=== PATIENT | female | born 1990 | race Caucasian/White ===

== ENCOUNTER 2022-03-01 13:41 | Outpatient (CLI) | payer SELFPAY ==
--- NOTE | 2022-03-01 14:00 | CRLHL7_ITS ---
For Patients: As a result of the Cures Act, medical imaging exams and procedure reports are released immediately into your electronic medical record. You may view this report before your referring provider. If you have questions, please contact your health care provider. INDICATION: First trimester scan, establish dates. COMPARISON: None. TECHNIQUE: Real-time law-scale imaging of the pelvis was performed. FINDINGS: Sonographic imaging demonstrates a single living intrauterine gestation. The embryo demonstrates a regular cardiac rate measuring 169 beats per minute. The embryo`s crown-rump length measurement of 1.8 cm corresponds to a gestational age of 8 weeks 2 days with a sonographic due date of 10/09/2022. There is a normal-appearing yolk sac. There are no gross abnormalities noted within the embryo at this early state of development. The gestational sac has a normal appearance. There is no evidence of a perigestational hemorrhage. The amount of fluid within the sac appears appropriate for gestational age. The cervix is closed. The myometrium appears normal. The ovaries are of normal size. Probable corpus luteal cyst left ovary. There are no suspicious fluid collections noted in the cul-de-sac. IMPRESSION: Normal first trimester OB ultrasound exam. Gestational age calculated at 8 weeks 2 days with a sonographic due date of 10/09/2022. Dictated by Tae Tony MD @ 03/01/2022 2:37:40 PM (Electronically Signed)
== END 2022-03-01 13:42 | disposition home or self-care (01) ==
LOC: US 13:42
PROVIDERS: PCP Emergency Medicine; Visit Provider Registered Nurse
DX: Z34.91 Encounter for supervision of normal pregnancy, unspecified, first trimester (principal)
CPT/HCPCS: 76817

== ENCOUNTER 2022-03-01 15:35 | Outpatient (CLI) | payer SELFPAY ==
[2022-03-01 19:56] LABS: Hepatitis B Surface Antigen* Negative (Negative)
[2022-03-01 20:02] LABS: HIV 1/2/P24 Combo Screen* Negative (Negative)
[2022-03-01 20:13] LABS: Hepatitis C Virus Antibody* Negative (Negative)
[2022-03-04 09:44] LABS: Rapid Plasma Reagin (RPR) Non Reactive (Non Reactive)
[2022-03-04 14:50] LABS: Rubella Antibody IgG 26.2 IU/mL
== END 2022-03-01 15:36 | disposition home or self-care (01) ==
PROVIDERS: PCP Emergency Medicine; Visit Provider Registered Nurse
DX: Z34.91 Encounter for supervision of normal pregnancy, unspecified, first trimester (principal)
CPT/HCPCS: 86592; 86703; 86762; 86803; 86850; 86900; 86901; 87086; 87340

== ENCOUNTER 2022-05-22 08:30 | Outpatient (CLI) | payer SELFPAY ==
--- NOTE | 2022-05-22 08:45 | CRLHL7_ITS ---
For Patients: As a result of the Century Cures Act, medical imaging exams and procedure reports are released immediately into your electronic medical record. You may view this report before your referring provider. If you have questions, please contact your health care provider. INDICATION: Evaluate anatomy. COMPARISON: 03/01/2022 TECHNIQUE: Real time law scale imaging of the fetus was performed as well as color Doppler analysis of the umbilical vessels. FINDINGS: Sonographic imaging demonstrates a single living intrauterine gestation. Fetus demonstrates a regular cardiac rate of 137 beats per minute. Fetus has a breech position. The placenta lies fundal without evidence of placenta previa. The edge of the placenta is located 9.4 cm from the internal cervical os. Amniotic fluid volume appears normal. Single deepest vertical pocket: 4.5 cm. The cervix is closed and measures 4.6 cm in length. The composite ultrasound gestational age is calculated at 20 weeks 1 day with an estimated sonographic due date of 10/08/2022. The estimated weight is 379 grams which lies at the 81st %. The following biometric measurements were obtained: Biparietal diameter: 4.5 cm/19 weeks 5 days 32nd% Head circumference: 17.4 cm/19 weeks 6 days 31st% Abdominal circumference: 17.1 cm/22 weeks 1 day 94th% Femur length: 3.1 cm/19 weeks 4 days 24th% The HC/AC ratio measures: 1.01 range (1.07-1.25) On anatomic survey, there is a normal appearance of the cerebral ventricles, cavum septi pellucidi, cisterna magna and cerebellum. The nose, lips, and facial profile appear normal. The cervical, thoracic and lumbar spine are well visualized and appear normal. There is a normal four-chamber heart view and the left and right ventricular outflow tracts appear normal. The diaphragm and stomach appear normal. The kidneys and bladder also appear normal. There is a normal three-vessel cord and cord insertion site. The four extremities appear normal. IMPRESSION: Normal OB ultrasound exam with concordance of clinical and sonographic dating. No intrinsic abnormalities noted on anatomic survey. Dictated by Tae Tony MD @ 05/23/2022 12:08:50 PM (Electronically Signed)
== END 2022-05-22 08:31 | disposition home or self-care (01) ==
LOC: US 08:31
PROVIDERS: PCP Emergency Medicine; Visit Provider Advanced Practice Midwife
DX: Z34.82 Encounter for supervision of other normal pregnancy, second trimester (principal); Z3A.20 20 weeks gestation of pregnancy
CPT/HCPCS: 76805

== ENCOUNTER 2022-06-27 13:07 | Outpatient (CLI) | payer SELFPAY | END 2022-06-27 13:08 | disposition home or self-care (01) | PROVIDERS: PCP Emergency Medicine; Visit Provider Registered Nurse | DX: R35.0 Frequency of micturition (principal) | CPT/HCPCS: 87086 ==

== ENCOUNTER 2022-07-17 10:13 | Outpatient (CLI) | payer SELFPAY ==
[2022-07-19 02:25] LABS: Rapid Plasma Reagin (RPR) Non Reactive (Non Reactive)
== END 2022-07-17 10:14 | disposition home or self-care (01) ==
LOC: LKVREF 10:13
PROVIDERS: PCP Emergency Medicine; Visit Provider Advanced Practice Midwife
DX: Z34.82 Encounter for supervision of other normal pregnancy, second trimester (principal); Z3A.25 25 weeks gestation of pregnancy
CPT/HCPCS: 86592

== ENCOUNTER 2022-09-11 09:45 | Outpatient (CLI) | payer SELFPAY ==
[2022-09-12 11:32] LABS: Strep B DNA Probe NEGATIVE (Negative)
[2022-09-12 19:33] LABS: Strep B Pen/Amox Allergy No
== END 2022-09-11 09:46 | disposition home or self-care (01) ==
LOC: LKVREF 09:46
PROVIDERS: PCP Emergency Medicine; Visit Provider Advanced Practice Midwife
DX: Z34.93 Encounter for supervision of normal pregnancy, unspecified, third trimester (principal); Z3A.36 36 weeks gestation of pregnancy
CPT/HCPCS: 87081; 87653

== ENCOUNTER 2022-09-18 15:23 | Outpatient (CLI) | payer SELFPAY | END 2022-09-18 15:24 | disposition home or self-care (01) | PROVIDERS: PCP Emergency Medicine; Visit Provider Advanced Practice Midwife | DX: Z34.93 Encounter for supervision of normal pregnancy, unspecified, third trimester (principal); Z3A.37 37 weeks gestation of pregnancy | CPT/HCPCS: 82239; 84450; 84460 ==

== ENCOUNTER 2022-10-10 01:55 | Inpatient (IN) | payer SELFPAY ==
[2022-10-10] VITALS (18 sets, daily range): BP systolic 108–136; BP diastolic 61–88; PULSE 73–99; RESP 16–18; TEMP 36.4–36.9; O2SAT 95–97; BMI 26.2
[2022-10-10] MEDS: hydrOXYzine pamoate 25 MG CAPSULE 100 MG PO (02:14)
[2022-10-10] MEDS: MORPHINE 10 MG/ML inj IM (04:50)
--- NOTE | 2022-10-10 07:54 | P.OBHP_ITS ---
Documented by User: Lucy Rice 10/10/22 09:27 OB - H&P: HPI Labor/Induction History of Present Illness Date Seen: 10/10/22 Chief Complaint: Aditi Rubin) is a 32 year old 4 para 2 at 40.2 weeks gestation by LMP, who presents for induction of labor with a history of cholestasis and a 4th degree tear. She arrived overnight with complaints of contractions and was given Morphine and Vistaril for theraputic rest. She reports spaced out contract ions this morning. Chief complaint: Maternity : 4 Para: 2 Indications for induction: other (Hx of cholestatsis) Narrative: Aditi Pereira is a 32 year old female here for induction of labor at 40.2 weeks. History of Present Dating criteria: based on LMP care: good care Ultrasounds: normal 1st trimester US and normal mid trimester US Medical complications: psychiatric (History of anxiety not on medications) and immunologic (Celiac disease) Labs Blood type: O (+) positive Rubella: immune RPR/VDLR: nonreactive GBS status: negative HBsAG: negative Review of Systems Status of ROS: Reports: 10 or more systems reviewed and unremarkable except as noted in History and below Cardio: Denies: edema, swelling of feet/ankles or shortness of breath with exertion Resp: Denies: shortness of breath GI: Reports: abdominal pain (contractions); Denies: nausea or vomiting Neuro: Denies: headache Psych: Denies: anxiety Meds Home Medications and Allergies Home Medications Medication Instructions Recorded Confirmed Type prenat.vits,bob,yno-kmly-mbwev 1 tab PO QDAY 03/01/22 10/10/22 History omega 8-rbb-nrm-fish oil 300 1 cap PO QDAY 04/24/22 10/10/22 History mg-1,000 mg capsule (Fish Oil) Allergies Allergy/AdvReac Type Severity Reaction Status Date / Time codeine Allergy Unknown Verified 10/02/22 09:21 hydrocodone AdvReac Unknown itchy Verified 10/02/22 09:21 vicodin Allergy Intermediate itching/mathew Uncoded 10/02/22 09:21 h gluten AdvReac Intermediate Uncoded 10/02/22 09:21 OB - H&P: Exam Physical Exam: Vital signs: Temp Pulse Resp BP 97.6 F 77 18 117/63 10/10/22 02:01 10/10/22 06:33 10/10/22 02:01 10/10/22 06:33 Constitutional: Constitutional: no acute distress Routine HEENT Exam: Head: Present normal inspection and normocephalic Detailed Eye Exam: Eyelids: right: normal inspection Pupils: right: Regular round pupils laterality Routine Neck Exam: Neck: Present full ROM and normal inspection Detailed Neck Exam: Thyroids: Thyroid: Present normal Routine Cardiovascular Exam: Cardiovascular: RRR, S1, S2 and murmur Routine Abdominal Exam: Comments: Gravid Detailed Labor and Delivery Exam: Patient Gravid: Yes Dilation (cm): 6 Effacement (%): 80 Cervix position: mid Consistency: soft Contraction frequency (min): 7 (per pt report) Contraction duration (sec): 60 Tachysystole: No Contraction intensity: Moderate Fetus (Single): Station: 0 Amniotic Membrane Status: AROM (attempted no fluid noted) Heart Rate Baseline: 120 Monitor Accelerations: Present Monitor Decelerations: None Routine Extremities Exam: Extremities: Present full ROM Routine Back/Spine/Pelvis Exam: Back/Spine: full ROM Routine Skin Exam: Present intact Routine Neurological Exam: Present alert and oriented X3 Routine Psychiatric Exam: Present normal affect and normal thought process OB - Problem Based A/P Additional Plan (1) Encounter for induction of labor: Status: Acute (2) 40 weeks gestation of : Status: Acute Plan ASSESSMENT:? 32yr old at 40.2 weeks gestation? complicated by:? Labor type: Induced, Early labor? Intermittent monitoring? Labor complicated by: history of Anxiety, H/o 4th degree laceration with 1st delivery, H/o cholestasis with 2nd . GBS negative? ? PLAN:? 1. Routine intrapartum cares as ordered. AROM attempted for induction. 2. Monitoring per policy, intermittent? 3. Planning unmedicated . Desires water . Consent signed. Hep C negative. Candidate for analgesia of choice.?? 4. Patient encouraged to reposition and ambulate to promote physiologic labor and .? 5. Anticipate 6. Reassess in 2-4 hours and PRN Delivery/Labor/Induction Plan Plan: induction Induction method: AROM Documented by User: Kim Batista CNM 10/10/22 11:30 OB - H&P: HPI Labor/Induction History of Present Illness Chief Complaint: Aditi Rubin) is a 32 year old 4 para 2 at 40.2 weeks gestation by LMP, who presents for elective induction of labor with a history of cholestasis and a 4th degree tear. She arrived overnight with complaints of contractions and was given Morphine and Vistaril for therapeutic rest. She reports spaced out contractions this morning. Chief complaint: Maternity Narrative: Aditi Pereira is a 32 year old female here for elective induction of labor at 40.2 weeks. She has received routine care. History and Physical was done by Mikhail Marcelo CNM on 09/18/2022. Please see this for additional information. OB PROBLEM LIST 1. H/o 4th degree laceration with 1st delivery. Seeing PT. 2. H/o cholestasis with 2nd . 3. History of anxiety. Currently doing well. Meds Home Medications and Allergies Home Medications Medication Instructions Recorded Confirmed Type prenat.vits,bob,wgx-orpy-naore 1 tab PO QDAY 03/01/22 10/10/22 History omega 6-bhz-hwj-fish oil 300 1 cap PO QDAY 04/24/22 10/10/22 History mg-1,000 mg capsule (Fish Oil) Allergies Allergy/AdvReac Type Severity Reaction Status Date / Time codeine Allergy Unknown Verified 10/02/22 09:21 hydrocodone AdvReac Unknown itchy Verified 10/02/22 09:21 vicodin Allergy Intermediate itching/mathew Uncoded 10/02/22 09:21 h gluten AdvReac Intermediate Uncoded 10/02/22 09:21 OB - Problem Based A/P Additional Plan (1) Encounter for induction of labor: Status: Acute (2) 40 weeks gestation of : Status: Acute Plan ASSESSMENT:? 32yr old at 40.2 weeks gestation? complicated by:?Anxiety, History of a 4th degree and hx of cholestasis. Labor type: Induced, Early labor? Intermittent monitoring? Labor complicated by: H/o 4th degree laceration with 1st delivery GBS negative? ? PLAN:? 1. Routine intrapartum cares as ordered. AROM attempted for induction. 2. Monitoring per policy, intermittent? 3. Planning unmedicated . Desires water . Consent signed. Hep C negative. Candidate for analgesia of choice.?? 4. Patient encouraged to reposition and ambulate to promote physiologic labor and .? 5. Anticipate 6. Reassess in 2-4 hours and PRN
[2022-10-10 09:09] LABS: SARS PCR* Negative SARS-CoV-2 (Negative)
[2022-10-10] MEDS: OXYTOCIN 10 UNIT/ML INJ IM (12:31)
--- NOTE | 2022-10-10 12:50 | W.PM.OBVAGDE ---
Documented by User: Lucy Rice 10/10/22 13:06 OB Procedure Vag Delivery Mother Details Mother Details: Frank is a 32 year-old, 4, Para 2, admitted on 10/10/22 at 40.2 weeks gestation. : 4 Para: 3 Weeks Gestation: 40.2 Admission Date: 10/10/22 Additional Details Amniotic Membrane Status: AROM (attempted no fluid noted) Amniotic Membrane Rupture Date: 10/10/22 Amniotic Membrane Rupture Time: 09:04 Amniotic Membrane Fluid Description: Clear Analgesia/Anesthesia Type: None Waterbirth: Yes Pitcoin: Yes (IM for AMTSL) Intrapartal Events: Labor Augmentation and Precipitous Labor <3 Hrs Induction Method: AROM Delivery augmentation: rupture of membranes Labor Onset: 09:04 Complete: 11:55 Pushin:55 Heart: heart tones during second stage were monitored intermittently and were 120's. Delivery Details Delivery Date: 10/10/22 Delivery Time: 12:07 Route of delivery: Gender: Female Viability: Alive; Heart Rate Present Position at Delivery: OA Delivery Details: Patient had an uncomplicated labor that progressed normally/with AROM augmentation to complete. Patient pushed well in multiple positions. of a viable female at 1207 in squatting position in the tub. Vertex delivered OA. No nuchal cord or shoulder. Body delivered easily and without incident. Infant passed to mothers abdomen with a vigorous cry. Cord was clamped and cut at > 5 minutes. APGARS were 8 at one minute and 9 at five minutes respectively. Mouth was bulb suctioned. Intact placenta with a 3 vessel cord delivered spontaneously noted blood clot behind placenta, fundus firmed after with fundal massage. IM Pitocin was given after delivery of the placenta. Fundus firm. no tear was identified. QBL 450 cc plus EBL 200 noted in the tub. Mother and baby stable; mother plans to breastfeed. Infant weight pending. 1 Minute Interval Total Score: 8 5 Minute Interval Total Score: 9 Additional Details Shoulder Dystocia: No Placenta Delivery Time: 12:26 Placental Delivery Description: Spontaneous Procedure Done: Global Blood Loss: 650 Laceration: None Blood Loss Measurement Type: QBL (with EBL from tub) Bakri Used: No Sponge/Need Count Correct: Yes Cord Vessel Description: 3 Vessels Event Summary Status: Mother and infant were stable after delivery. Disposition: floor Documented by User: Kim Batista CNM 10/10/22 19:41 OB Procedure Vag Delivery Delivery Details Delivery Details: Patient had an uncomplicated labor that progressed normally with AROM augmentation to complete. Patient pushed well in multiple positions. of a viable female at 1207 in squatting position in the tub. Vertex delivered OA. No nuchal cord or shoulder. Body delivered easily and without incident. passed to mothers abdomen between her legs with a vigorous cry. Mom was assisted to sitting. After a few minutes in the tub mom was assisted by multiple staff members with baby in arms, per her request, to the bed for delivery of placenta. Cord was clamped and cut at > 5 minutes. APGARS were 8 at one minute and 9 at five minutes respectively. Mouth was bulb suctioned. Intact placenta with a 3 vessel cord delivered spontaneously with significant blood clot noted to deliver behind placenta, fundus firmed after with fundal massage. IM Pitocin was given after delivery of the placenta. Fundus firm. No perineal tear was identified. QBL 450 cc plus EBL 200 noted in the tub, total 650 mL. Mother and baby stable; mother plans to breastfeed. Infant weight 9lb 6oz. NUHA Lopez with supervision by Kim Batista CNM.
[2022-10-11 00:27] VITALS: BP 114/72; PULSE 80; RESP 16; TEMP 37.1; O2SAT 99
[2022-10-11 05:09] VITALS: BP 102/67; PULSE 87; RESP 16; TEMP 36.5; O2SAT 98
[2022-10-11 07:11] LABS: Hemoglobin* 9.4 gm/dL (12.0-16.0)
--- NOTE | 2022-10-11 07:20 | PM.OBDSVD1 ---
DS: Providers Provider Time Seen by Provider: 07:20 Date Seen: 10/11/22 Date of admission: 10/10/22 01:55 Primary care physician: Chandrika Brooks Admitting Clinician: Crystal Marcelo CNM Attending Physician on discharge: Crystal Marcelo CNM Date of Discharge: 10/11/22 DS: Diagnosis Discharge Diagnosis (1) NVD (normal vaginal delivery): Status: Acute (2) Lactating mother: Status: Acute Exam Narrative: Exam Narrative: VSS, afebrile GENERAL APPEARANCE: ?normal affect, alert, no distress MOOD: ?appropriate HEENT: normocephalic, neck supple, full ROM CHEST: ?Symmetrical chest wall movement. ?Normal respiratory effort. ?Clear to auscultation HEART: ?regular rate and rhythm ABDOMEN: ?soft. Mild tenderness to palpation where she is feeling some muscle strain. Uterine fundus is firm, at Umbilicus, Midline and is appropriate for the stage of recovery. ?Bowel sounds present. PERINEUM: ?mild edema of the perineum, there is no lacerations EXTREMITIES: ?normal and no edema Const: Vital Signs, click to edit/add: Vital Signs - 24 hr 10/10/22 09:08 10/10/22 09:04 10/10/22 10:00 Temperature 98.4 F 98.1 F Pulse Rate 73 Pulse Rate [Pulse Oximeter] Respiratory Rate Blood Pressure 136/72 Blood Pressure [Le ft Arm] Pulse Oximetry Oxygen Delivery Mo thod 10/10/22 10:50 10/10/22 10:50 10/10/22 11:39 Temperature Pulse Rate 99 Pulse Rate [Pulse Oximeter] Respiratory Rate Blood Pressure 112/70 129/74 Blood Pressure [Le ft Arm] [facility] 11:39 10/10/22 12:33 10/10/22 12:34 Temperature Pulse Rate 98 90 92 Pulse Rate [Pulse Oximeter] Respiratory Rate Blood Pressure 135/88 131/66 Blood Pressure [Le ft Arm] Pulse Oximetry Oxygen Delivery Mo thod 10/10/22 12:49 10/10/22 13:03 10/10/22 13:22 Temperature Pulse Rate 99 87 78 Pulse Rate [Pulse Oximeter] Respiratory Rate Blood Pressure 117/64 124/74 117/64 Blood Pressure [Le ft Arm] Pulse Oximetry [facility] 13:34 10/10/22 13:49 10/10/22 14:04 Temperature Pulse Rate 82 81 93 Pulse Rate [Pulse Oximeter] Respiratory Rate Blood Pressure 130/63 118/74 108/67 Blood Pressure [Le ft Arm] Pulse Oximetry Oxygen Delivery Me thod 10/10/22 14:19 10/10/22 12:49 10/10/22 16:25 Temperature 98.1 F 98.3 F Pulse Rate 76 Pulse Rate [Pulse Oximeter] 81 Respiratory Rate 16 Blood Pressure 129/61 Blood Pressure [Le ft Arm] 113/71 Pulse Oximetry 95 Oxygen Delivery Me thod Room Air 10/10/22 20:05 10/11/22 00:27 10/11/22 05:09 Temperature 98.2 F 98.8 F 97.7 F Pulse Rate Pulse Rate [Pulse Oximeter] 77 80 87 Respiratory Rate 16 16 16 Blood Pressure Blood Pressure [Le ft Arm] 115/76 114/72 102/67 Pulse Oximetry 97 99 98 Oxygen Delivery Me thod Room Air Room Air Room Air Documenting provider has reviewed patient's vital signs: yes OB - DS: Summary Hospital Course Hospital Course: Sandra is a 32 y.o. G 4 P 3 who was admitted to [facility] for . ?She had an uncomplicated NVD The patient feels well. ?The pain is well controlled with current medications. She does have some tenderness along her upper abdomen to the sides. Mildly tender to palpation. Feels like muscle strain. Likely r/t to labor/pushing positions. Aware to call if worsens. ?She is breast feeding and reports things are going well.? the patient has done well.? Vitals have been stable.? She has remained afebrile.? Has a good appetite, is tolerating a general diet. ?She is voiding without difficulty.? She is passing gas and has not had a bowel movement.? She is ambulating and denies any dizziness.? Has Small amount of rubra lochia. She is planning condoms for prevention. Problems: none plan: Discharge home with baby. Follow up in 2 weeks and 6 weeks. , may follow up with if needed Acute anemia, continue iron supplementation for 6 weeks Peripartum Data Infant delivery method: Vaginal Laceration description: None complications: none Infant Gender: Female Infant Discharge Plan: Home Status at Discharge Functional status at discharge: independent ambulation Overall status at discharge: patient is progressing back to baseline Time Spent with Patient Time attestation: Total time spent providing and/or coordinating discharge services: Time spent: Less than 30 minutes Discharge Plan Discharge Disposition: Home, Self-Care Date of Admission: 10/10/22 01:55 Attending Provider on Discharge: Hannah Ellsworth Primary Care Provider: Chandrika Brooks Condition: Stable Anticipated Discharge Date/Time: 10/11/22 14:26 Discharge Medications: New docusate sodium 100 mg Capsule 100 mg PO BID PRNQty: 100 0RF Rx Instructions: Take 1 cap 1-2 times a day as needed for constipation ibuprofen 600 mg Tablet 600 mg PO Q6H PRNQty: 60 0RF ferrous sulfate 325 mg (65 mg iron) tablet 325 mg PO Q OTHER DAY Qty: 25 0RF Continued prenat.vits,bob,wpi-fsvc-ktejn Tablet 1 tab PO QDAY omega 3-eyz-msr-fish oil [Fish Oil] 300-1,000 mg capsule 1 cap PO QDAY Discharge Orders: Discharge Order (Routine); Ordered 10/11/22 Ordered By: Hannah Ellsworth Patient Education: OB Over the Counter Medication Information, OB Vaginal/Breast Feeding Additional Instructions: Follow up in 2 weeks and 6 weeks in the clinic. Your hemoglobin (iron level) was low after . Taking an iron supplement every other day for the next 6 weeks will help it return to normal. Activity Level: Activity as Tolerated Discharge Diet: Regular Follow Up Appointments: Chandrika Brooks MD [Primary Care Provider] - Forms: [facility] Info Instructions
[2022-10-11 08:50] VITALS: BP 120/81; PULSE 87; RESP 18; TEMP 36.6
[2022-10-11 12:15] VITALS: BP 116/71; PULSE 65; RESP 18; TEMP 36.6
== END 2022-10-11 13:29 | disposition home or self-care (01) | DRG 807 ==
LOC: OB OUT 02:01 → OB 02:01
PROVIDERS: Advanced Practice Midwife; Admitting Provider Advanced Practice Midwife; PCP Emergency Medicine; Visit Provider Advanced Practice Midwife
DX: O99.344 Other mental disorders complicating childbirth (principal); F41.9 Anxiety disorder, unspecified; Z3A.40 40 weeks gestation of pregnancy; Z37.0 Single live birth
CPT/HCPCS: 36415; 85018; 87635; A9270; J2270; J2590

== ENCOUNTER 2024-06-17 06:59 | Outpatient (CLI) | payer OTHER, SELFPAY ==
--- NOTE | 2024-06-17 07:15 | CRLHL7_ITS ---
For Patients: As a result of the Century Cures Act, medical imaging exams and procedure reports are released immediately into your electronic medical record. You may view this report before your referring provider. If you have questions, please contact your health care provider. INDICATION: First trimester scan, establish dates. COMPARISON: None. TECHNIQUE: Real-time law-scale imaging of the pelvis was performed. FINDINGS: Sonographic imaging demonstrates a single living intrauterine gestation. The embryo demonstrates a regular cardiac rate measuring 1.6 beats per minute. The embryo`s crown-rump length measurement of 1.6 cm corresponds to a gestational age of 8 weeks 0 days with a sonographic due date of 01/27/2025. There is a normal-appearing yolk sac. There are no gross abnormalities noted within the embryo at this early state of development. The gestational sac has a normal appearance. There is no evidence of a perigestational hemorrhage. The amount of fluid within the sac appears appropriate for gestational age. The cervix is closed. The myometrium appears normal. Simple cyst right ovary measures 3.3 cm. Unremarkable left ovary. There are no suspicious fluid collections noted in the cul-de-sac. IMPRESSION: Single living intrauterine with sonographic gestational age 8 weeks 0 days and a sonographic due date 01/27/2025. Dictated by Tae Tony MD @ 06/17/2024 8:05:41 AM (Electronically Signed)
== END 2024-06-17 07:00 | disposition home or self-care (01) ==
PROVIDERS: PCP Emergency Medicine; Visit Provider Advanced Practice Midwife
DX: Z34.91 Encounter for supervision of normal pregnancy, unspecified, first trimester (principal); Z3A.08 8 weeks gestation of pregnancy
CPT/HCPCS: 76817

== ENCOUNTER 2024-06-17 08:47 | Outpatient (CLI) | payer OTHER, SELFPAY | END 2024-06-17 08:48 | disposition home or self-care (01) | PROVIDERS: PCP Emergency Medicine; Visit Provider Advanced Practice Midwife | DX: Z34.81 Encounter for supervision of other normal pregnancy, first trimester (principal); Z67.40 Type O blood, Rh positive | CPT/HCPCS: 83020; 83021; 85660; 86592; 86703; 86704; 86706; 86762; 86787; 86803; 86850; 86900; 86901; 87086; 87340 ==

== ENCOUNTER 2024-07-02 15:20 | Outpatient (CLI) | payer OTHER, SELFPAY ==
--- NOTE | 2024-07-02 15:00 | CRLHL7_ITS ---
For Patients: As a result of the Cures Act, medical imaging exams and procedure reports are released immediately into your electronic medical record. You may view this report before your referring provider. If you have questions, please contact your health care provider. INDICATION: Uterine bleeding. No heart tones on office ultrasound. COMPARISON: 06/17/2024 pelvic ultrasound TECHNIQUE: Sonographic evaluation of the pelvis was performed utilizing law-scale and color Doppler imaging techniques. Transvaginal images were obtained to improve assessment of the fetus and endometrium. FINDINGS: Retroverted uterus. There is a single intrauterine with a pole. The crown-rump length measures 1.8 centimeters corresponding to a estimated gestational age of 8 weeks and 2 days. No cardiac activity is detected. Mean gestational sac diameter measures 2.9 centimeters. No yolk sac is visualized. The right ovary measures 5 x 2.7 x 2.8 centimeters. There is a right-sided simple appearing cyst measuring 2.9 centimeters. The left ovary measures 2.5 x 1.5 x 1.7 centimeters. Vascular flow is detected in the bilateral ovaries on color Doppler imaging. No substantial pelvic free fluid. IMPRESSION: Single intrauterine without detectable cardiac activity. Findings are diagnostic for early loss. Dictated by Jg De Leon MD @ 07/02/2024 4:29:26 PM (Electronically Signed)
== END 2024-07-02 15:21 | disposition home or self-care (01) ==
LOC: US 15:21
PROVIDERS: PCP Emergency Medicine; Visit Provider Advanced Practice Midwife
DX: O20.9 Hemorrhage in early pregnancy, unspecified (principal); O03.9 Complete or unspecified spontaneous abortion without complication
CPT/HCPCS: 76817